=== PATIENT | female | born 1975 | race Caucasian/White ===

== ENCOUNTER 2017-07-30 05:38 | Day surgery (SDC) | payer BC ==
--- NOTE | 2017-07-29 15:03 | HP ---
The patient is scheduled for outpatient surgery on 07/30/2017. HISTORY OF PRESENT ILLNESS: Ms. Celaya is a 41-year-old white female, G3, P3 with history of laparo scopic tubal ligation who presented with complaint of menorrhagia. She has been having normal cycles until recently where she was bleeding off and on for 3 weeks. She was evaluated in my office on 01/2018 and ultrasound was performed. Pelvic ultrasound at that time showed a uterus measuring 8.2 x 5.8 x 6.5 cm with endometrial thickness of 17.6 mm with debris noted within the lining and no blood flow. Right ovary appeared normal. The left ovary measuring 4.34 x 2.5 x 3.5 cm with a hemorrhagic cyst or endometrioma of 1.6 x 1.7 cm seen. Patient was treated for presumed abnormal uterine bleeding, suspect ovarian ovulatory issue and was g iven Provera 10 mg b.i.d. for 10 days. She called back today on 07/29/2017 stating that her menstrua l cycles has increased in its flow despite the Provera and is bleeding now every 1-2 hours, super mckeon ok full. PAST SURGICAL HISTORY: Laparoscopic tubal ligation. BTL in 2016. Three spontaneous vaginal deliver ies. SOCIAL HISTORY: Nonsmoker and denies alcohol use. She is . ALLERGIES: She has no known drug allergies. FAMILY HISTORY: Essential hypertension and diabetes. PHYSICAL EXAMINATION: VITAL SIGNS: Her blood pressure is 116/70, pulse is 80 and regular, height 69 inches, weight 150 holly nds with a BMI of 22.2. HEENT: Within normal limits. CHEST: Clear to auscultation. HEART: Regular rate and rhythm. S1, S2 heart sounds. No murmurs, rubs or gallops. ABDOMEN: Soft, nontender, nondistended with no palpable masses. PELVIC: Vulva and vagina had no lesions. Some vaginal menstrual blood was noted. There was no cerv ical lesions. Uterus is small, nontender. Adnexa were nontender with no masses. ASSESSMENT: A 41-year-old white female with abnormal uterine bleeding with failed Provera medical ma nagement trial, thickened endometrial lining 17.8 mm to rule out possible polyp. PLAN: Proceed with diagnostic hysteroscopy with D&C in order to treat the bleeding and also for furt her diagnostic workup. This is scheduled for 07/30/2017.
[2017-07-29 16:50] VITALS: BMI 21.5
[2017-07-30] MEDS ORDERED: CEFAZOLIN/Water 2 GM/20 ML SYRINGE ONE (06:09)
[2017-07-30 06:25] LABS: Hemoglobin 12.1 g/dL (12.0-16.0); Mean Corpuscular Hemoglobin 33.1 pg (27.0-31.0); Mean Platelet Volume 8.1 fL (7.4-10.4); Platelet Count 229 thou/uL (130-400); RBC Distribution Width 11.4 % (11.5-14.5); Red Blood Cell (RBC) Count 3.67 mill/uL (4.20-5.40); White Blood Cell (WBC) Count 4.5 thou/uL (4.8-10.8)
[2017-07-30] MEDS ORDERED: Fentanyl 100 MCG/2 ML VIAL ONE ×2 (06:29→07:01)
[2017-07-30] MEDS ORDERED: Lidocaine 1% w/Epinephrine 1:200K 30 ML VIAL ONE (06:41)
[2017-07-30 06:47] LABS: BHCG - Serum Negative (NEGATIVE); Pregs Control Background? CLEAR/WHITE (CLR/WHITE); Pregs Control Bar Appear? YES (CONTROL BAR)
[2017-07-30] MEDS ORDERED: Midazolam HCl 2 mg/2 ml Vial ONE (07:01)
--- NOTE | 2017-07-30 08:38 | OP ---
DATE OF PROCEDURE: 07/30/2017 PREOPERATIVE DIAGNOSES: A 41-year-old white female, G3, P3, with prior tubal ligation with menorrhag ia unresponsive to medical management trial. POSTOPERATIVE DIAGNOSES: 1. A 41-year-old white female, G3, P3, with prior tubal ligation with menorrhagia unresponsive to me dical management trial. 2. Anovulatory bleeding. PROCEDURE PERFORMED: Diagnostic hysteroscopy with D&C. SURGEON: Martha Presley M.D. ANESTHESIA: General with LMA. COMPLICATIONS: None. COUNTS: Correct x2. PATHOLOGY: Endometrial curettings. FINDINGS: 1. Hysteroscopic evaluation of endometrial cavity and endocervical cavity showed no polyps, myomas o r lesions. Endometrial lining appeared thin. 2. Fluid deficit was 50 mL of normal saline from distension media. DISPOSITION: To the recovery room with plan for discharge home from day stay. DESCRIPTION OF OPERATIVE PROCEDURE: The patient previously received informed consent in regards to s urgery. She was taken back to the operating room where she received a general anesthetic agent witho ut complications, placed in dorsal lithotomy position with the use of Sy stirrups and prepped and draped in usual sterile fashion. In and out catheterization of bladder was performed. At this time, a side-arm speculum was placed in the vagina. Anterior lip of cervix grasped with a single tooth te naculum. Uterus sounded to 8 cm. The cervix was dilated to a size 16 Hanks dilator and the 5 mm tala gnostic scope was then inserted through the cervical os and to the endometrial cavity and the uterus was distended with saline distention media via the Truclear hysteroscopic system. Previously mention ed findings were photo documented and hysteroscope was removed. Sharp curettage of the cavity was th en performed and these curettings were sent for final pathologic analysis. The tenaculum was then re moved and a sponge stick was applied to the cervix for hemostasis. This was removed and hemostasis c onfirmed. The patient was awakened from anesthesia and transferred to the recovery room in stable co ndition.
[2017-07-30] MEDS ORDERED: Ibuprofen 600 MG TAB PO ONE (08:45)
[2017-07-30] MEDS ORDERED: Ondansetron HCl/PF 4 MG/2 ML Vial ONE (15:50)
[2017-07-30] MEDS ORDERED: Ketorolac Tromethamine 30 MG/ML VIAL ONE (15:50)
[2017-07-30] MEDS ORDERED: PROPOFOL 200 MG/20 ML VIAL ONE (15:50)
[2017-07-30] MEDS ORDERED: Lidocaine 1% PF 5 ML VIAL ONE (15:50)
[2017-07-30] MEDS ORDERED: Dexamethasone 20 MG/5 ML VIAL ONE (15:50)
== END 2017-07-30 09:41 | disposition home or self-care (01) ==
LOC: SDC 05:38
PROVIDERS: ATTEND Obstetrics & Gynecology
PROC: 0UJD8ZZ Inspection of Uterus and Cervix, Via Natural or Artificial Opening Endoscopic (ICD-10-PCS; principal; 2017-07-30)
PROC: 0UDB7ZX Extraction of Endometrium, Via Natural or Artificial Opening, Diagnostic (ICD-10-PCS; principal; 2017-07-30)
DX: N92.0 Excessive and frequent menstruation with regular cycle (principal); I10 Essential (primary) hypertension; E11.9 Type 2 diabetes mellitus without complications; Z79.3 Long term (current) use of hormonal contraceptives; Z98.51 Tubal ligation status; Z98.82 Breast implant status; Z90.89 Acquired absence of other organs
CPT/HCPCS: 84703; 85027; 86850; 86900; 86901; 88305; J0131; J1100; J1885; J2001; J2250; J2405; J2704; J3010

== ENCOUNTER 2017-10-01 10:01 | Outpatient (CLI) | payer BC | END 2017-10-01 10:02 | disposition home or self-care (01) | LOC: BICRAD 10:01 | PROVIDERS: ATTEND Nurse Practitioner Family | DX: M54.2 Cervicalgia (principal) | CPT/HCPCS: 72052 ==

== ENCOUNTER 2017-12-15 16:35 | Outpatient (CLI) | payer BC ==
[2017-12-15 17:15] LABS: Hemoglobin 12.4 g/dL (12.0-16.0); Mean Corpuscular HGB CONC 34.1 g/dL (32.0-36.0); Mean Corpuscular Hemoglobin 31.6 pg (27.0-31.0); Mean Corpuscular Volume 92.7 fL (78.0-98.0); Mean Platelet Volume 7.9 fL (7.4-10.4); Platelet Count 307 thou/uL (130-400); Red Blood Cell (RBC) Count 3.94 mill/uL (4.20-5.40); White Blood Cell (WBC) Count 7.2 thou/uL (4.8-10.8)
[2017-12-15 17:46] LABS: BHCG - Serum Negative (NEGATIVE); Pregs Control Background? CLEAR/WHITE (CLR/WHITE); Pregs Control Bar Appear? YES (CONTROL BAR)
== END 2017-12-15 16:36 | disposition home or self-care (01) ==
LOC: LABBT 16:35
PROVIDERS: ATTEND Obstetrics & Gynecology
DX: Z01.812 Encounter for preprocedural laboratory examination (principal); N94.6 Dysmenorrhea, unspecified; N92.0 Excessive and frequent menstruation with regular cycle; Q06.1 Hypoplasia and dysplasia of spinal cord
CPT/HCPCS: 84703; 85027; 86850; 86900; 86901

== ENCOUNTER 2017-12-16 07:54 | Observation (INO) | payer BC ==
--- NOTE | 2017-12-14 16:31 | HP ---
She is scheduled for a hysterectomy on 12/16/2017. HISTORY OF PRESENT ILLNESS: Ms. Celaya is a 42-year-old white female, with history of laparos copic tubal ligation who has been having continued menorrhagia issues. She saturates heavy pad with significant dysmenorrhea. Her menstrual cycles has continued to have heavy bleeding despite use of n onsteroidals. She did have a diagnostic hysteroscopy, D&C in 07/2017 that showed benign findings wit h no evidence of myomas or polyps. 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 The periods are described as ve ry painful and heavy and now with onset of cervical dysplasia. She is desiring definitive surgical t herapy. PAST MEDICAL HISTORY: Negative. PAST SURGICAL HISTORY: Noted laparoscopic tubal along with hysteroscopy, D&C. CURRENT MEDICATIONS: Lysteda, heavy menstrual bleeding. 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 SOCIAL HISTORY: No tobacco use. No significant alcohol use. ALLERGIES: She has no known drug allergies. FAMILY HISTORY: Essential hypertension, diabetes, no colon cancer or ovarian cancer or breast cancer . PHYSICAL EXAMINATION: VITAL SIGNS: Her blood pressure is 120/70, pulse 79 and regular, respirations 18, height 69 inches, weight 151 pounds, BMI of 22.3. HEENT: Within normal limits. CHEST: Clear to auscultation. HEART: Regular rate and rhythm. S1, S2 heart sounds, no murmurs, rubs or gallops. ABDOMEN: Soft, nontender, nondistended with no palpable masses. PELVIC: Vulva, vagina had no lesions. Cervix noted to have grade BRIDGET and biopsy recently. Uterus w as small and nontender, immobile. No adnexal tenderness or masses were noted. ASSESSMENT: This is a 42-year-old white female G3, P3 laparoscopic tubal ligation with continued sev ere dysmenorrhea and menorrhagia, failing medical management of Lysteda and nonsteroidals. 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 Due to multifacto r, she is now desiring definitive surgical therapy. We would plan for robotic total laparoscopic hys terectomy, remainder of tubal segments. Risks and benefits of procedure discussed in detail. She is set for surgery on 12/16/2017.
[2017-12-15 17:04] VITALS: BMI 22.6
[2017-12-16] MEDS ORDERED: Gabapentin 300 MG CAP ONE (08:30)
[2017-12-16] MEDS ORDERED: CEFAZOLIN/Water 2 GM/20 ML SYRINGE ONE (08:30)
[2017-12-16] MEDS ORDERED: Bupivacaine HCl 0.5%/Epinephrine 1:200,000/PF 30 ml Vial ONE (08:34)
[2017-12-16] MEDS ORDERED: CeleCOXIB 100 MG CAP PO SCH (08:45)
[2017-12-16] MEDS ORDERED: Famotidine/PF 20 mg/2ml Vial ONE (09:06)
[2017-12-16] MEDS ORDERED: Midazolam HCl 2 mg/2 ml Vial ONE ×2 (09:19→09:22)
[2017-12-16] MEDS ORDERED: Lidocaine 2% Jelly 5 ML TUBE ONE (09:22)
[2017-12-16] MEDS ORDERED: Fentanyl 250 MCG/5 ML VIAL ONE (09:22)
[2017-12-16] MEDS ORDERED: HYDROmorphone 2 MG/ML VIAL SLOW IVP PRN (10:30)
[2017-12-16] MEDS ORDERED: Ondansetron HCl/PF 4 MG/2 ML Vial IVP PRN ×2 (10:30→11:21)
[2017-12-16] MEDS ORDERED: Promethazine HCl 25 MG/ML VIAL IM PRN ×2 (10:30→11:21)
[2017-12-16] MEDS ORDERED: Promethazine HCl 25 MG/ML VIAL SLOW IVP PRN (10:30)
[2017-12-16] MEDS ORDERED: Ondansetron HCl/PF 4 MG/2 ML Vial ONE (11:19)
[2017-12-16] MEDS ORDERED: Lidocaine 1% PF 5 ML VIAL ONE (11:19)
[2017-12-16] MEDS ORDERED: PHENYLEPHRINE-NS 100 MCG/ML 10 ML SYRINGE ONE (11:19)
[2017-12-16] MEDS ORDERED: PROPOFOL 200 MG/20 ML VIAL ONE (11:19)
[2017-12-16] MEDS ORDERED: Dexamethasone 20 MG/5 ML VIAL ONE (11:19)
[2017-12-16] MEDS ORDERED: Glycopyrrolate 0.2 MG/ML 5 ML SYRINGE ONE (11:19)
[2017-12-16] MEDS ORDERED: Zolpidem Tartrate 5 MG TAB PO PRN (11:21)
[2017-12-16] MEDS ORDERED: Bisacodyl 10 MG SUPP PR PRN (11:21)
[2017-12-16] MEDS ORDERED: diphenhydrAMINE 25 MG CAP PO PRN (11:21)
[2017-12-16] MEDS ORDERED: traMADol HCl 50 MG TAB PO PRN (11:21)
[2017-12-16] MEDS ORDERED: Morphine 4 MG/ML Carpuject SLOW IVP PRN (11:21)
[2017-12-16] MEDS ORDERED: Simethicone Chewable 80 MG TAB PO PRN (11:21)
[2017-12-16] MEDS ORDERED: Fentanyl 100 MCG/2 ML VIAL ONE ×2 (11:50→12:15)
--- NOTE | 2017-12-16 12:16 | OP ---
DATE OF PROCEDURE: 12/16/2017 PREOPERATIVE DIAGNOSES: 1. A 42-year-old white female, G3, P3 with some menorrhagia, dysmenorrhea, unresponsive to medical m anagement. 2. Cervical dysplasia. 3. Desires definitive surgical therapy. POSTOPERATIVE DIAGNOSES: 1. A 42-year-old white female, G3, P3 with some menorrhagia, dysmenorrhea, unresponsive to medical m anagement. 2. Cervical dysplasia. 3. Desires definitive surgical therapy. PROCEDURE PERFORMED: Robotic total laparoscopic hysterectomy with bilateral salpingectomy. SURGEON: Martha Presley M.D. PUBLIC HEALTH DOCTOR: Юлия Lombardi M.D. ANESTHESIA: General endotracheal. ESTIMATED BLOOD LOSS: Less than 50 mL. COMPLICATIONS: None. COUNTS: Correct x2. ANTIBIOTICS: Two grams Ancef on-call to the operating room. PATHOLOGY: Uterus, cervix, and bilateral fallopian tubes. FINDINGS: 1. Normal-appearing bilateral ovaries and fallopian tubes status post previous Filshie clip applicat ors. 2. Generalized boggy uterus consistent with adenomyosis. 3. Clear urine present in Flynn catheter post-procedure. 4. Bilateral ureteral peristalsis visualized post procedure. DISPOSITION: To the recovery room stable. DESCRIPTION OF OPERATIVE PROCEDURE: The patient previously received informed consent in regard to [facility]. She was taken back to the operating room where she received general endotracheal anesthetic a gent without complications. She was placed in the dorsal lithotomy position with use of Sy stirru ps and prepped and draped in usual sterile fashion. A sidearm speculum was placed in the vagina. An terior lip of cervix was grasped with a single-tooth tenaculum. The uterus then sounded to 8 cm. A size 8 cm GIANA uterine manipulator with a 4.0 cm cervical cup was then placed in the usual fashion. Tenaculum and speculums was removed and a Flynn catheter had been placed. Attention was then turned to the abdomen where perspective trocar sites were infiltrated with 0.5% Marcaine with epinephrine. A 10 mm infraumbilical incision was made. Veress needle entered into peritoneal cavity and proper pl acement was confirmed with patient pressure less than 5 mmHg. Abdomen was insufflated to patient pre ssure of 15, approximately 4-1/2 liters carbon dioxide gas. A size 12 mm trocar was then placed thro ugh the infraumbilical incision and the robotic laparoscope was introduced through a trocar sleeve co nfirming proper entry. Additional bilateral lower quadrant 8 mm trocars were placed under laparoscop ic guidance with the right upper quadrant 11 mm trocar. The patient was placed in Trendelenburg posi tion and the robot was docked in usual fashion. Then, I proceeded to carry out the operation from th e operative console were my assistants remained at the bedside. Uterus was elevated and the previous ly mentioned findings were noted. The left fallopian tube was grasped at the fimbria by my mental health assistant and I proceeded to use the bipolar fenestrated device to coagulate the mesosalpinx and fallopian tub e with transection of this with the monopolar scissors with removal of the fallopian tube and it was removed up through the right upper quadrant trocar site. The left uterine ovarian ligament was then coagulated with bipolar fenestrated cautery, transected with serial coagulation and transection of th e broad ligament, hugging close to uterine specimen. The left round ligament was reached, it was coa gulated and transected. The anterior leaf of the broad ligament was then entered and the vesicouteri ne peritoneal dissection was carried under short and both blunt dissection, dissecting the bladder at raumatically past the cervical vaginal angle, which was delineated by the indentation of the cervical cup manipulator. The left uterine vessels were skeletonized and they were coagulated internal cervi hubert os region. This was repeated in similar fashion on the right side of the uterus again with the f allopian tube being removed and coagulated under the mesosalpinx and excised. The right uteroovarian ligament was then coagulated and transected with serial coagulation of broad ligament up to the roun d ligament being coagulated and transected again entering into the anterior leaf of the broad ligamen t and incised in a layering technique. The vesicouterine peritoneum dropping the bladder atraumatica lly past the cervical vaginal angle. Right uterine vessels again were skeletonized and coagulated in ternal cervical os region. At this point, the anterior colpotomy was then created ensuring the bladd er had been dissected atraumatically past the intended colpotomy site. The colpotomy began from the 12 to 3 o'clock and 12 to 9 o'clock position over the cervical cup coagulating the vessels at 9 and 3 o'clock position again and the posterior colpotomy completed this from 6 to 3 and 6 to 9 in likewise fashion. The uterus was then delivered in the vaginal vault. The monopolar scissor was switched fo r Chay needle food mobile driver. The vaginal cuff was coagulated any remaining oozing areas with bipolar fenest rated cautery. A Stratafix suture was then brought into the field by my mental health assistant and the vaginal cu ff was closed in full thickness beginning at the left angle towards right angle back towards the midl ine. Hemostasis was assured. The pelvis again was irrigated and suctioned. All pedicle sites were noted to be hemostatic. Bilateral ureteral peristalsis was then visualized and bilateral pelvic side silverio and courses of the ureters were below the operative field site. The urine in the Flynn bag was clear and draining adequately. The robot was then undocked. Trocar sleeves were removed after the gas had escaped and then a deep stitch of 0 Vicryl in [id number] stitch fashion was placed and t hen fascial defect at the umbilicus. The remainder trocar sites were closed with 4-0 Monocryl suture and Dermabond. The sponge stick was placed in the vagina post-procedure and the vaginal vault was d ry with no active bleeding. The patient was awakened from anesthesia, transferred to the recovery ro om in stable condition
[2017-12-16] MEDS: Ketorolac Tromethamine 30 MG/ML VIAL IVP SCH ×3 (13:14→19:50)
[2017-12-16] MEDS: Lactated Ringer's 1,000 ML IV SCH ×2 (13:18→18:27)
[2017-12-16] MEDS: Acetaminophen 1,000 MG in Premix Bag 1 BAG IVPB SCH ×3 (13:39→19:51)
[2017-12-16] MEDS: Morphine 10 MG/ML VIAL SLOW IVP PRN ×2 (15:06→20:30)
[2017-12-16] MEDS: traMADol HCl 50 MG TAB PO PRN ×2 (16:27→21:59)
[2017-12-17] MEDS: Ketorolac Tromethamine 30 MG/ML VIAL IVP SCH ×2 (02:03→07:45)
[2017-12-17] MEDS: Acetaminophen 1,000 MG in Premix Bag 1 BAG IVPB SCH ×2 (02:04→07:46)
[2017-12-17] MEDS: traMADol HCl 50 MG TAB PO PRN ×2 (04:01→09:38)
[2017-12-17] MEDS: Lactated Ringer's 1,000 ML IV SCH ×2 (04:08→10:12)
[2017-12-17 06:09] LABS: Hemoglobin 11.5 g/dL (12.0-16.0); Mean Corpuscular HGB CONC 33.3 g/dL (32.0-36.0); Mean Corpuscular Hemoglobin 31.2 pg (27.0-31.0); Mean Corpuscular Volume 93.7 fL (78.0-98.0); Mean Platelet Volume 8.5 fL (7.4-10.4); Platelet Count 280 thou/uL (130-400); RBC Distribution Width 12.1 % (11.5-14.5); Red Blood Cell (RBC) Count 3.68 mill/uL (4.20-5.40)
[2017-12-17 08:32] VITALS: BP 119/77; TEMP 98.5
--- NOTE | 2017-12-17 09:27 | PDOC.EVN ---
Event Note - Event Note Event Note: Tolerating diet, voiding, ambulating. Ready to go home. O: Tm 98.5 P89 r20 119/77 HCT 34.5% ABD: soft /non distended. active bowel sounds. trochar sites C/D/I perineum is dry A/P post op day 1 from robotic tlh. Doing well. D/c home. Has f/u 2 and 6 weeks. rx for tramadol.
--- NOTE | 2017-12-17 09:42 | DIS ---
DATE OF ADMISSION: 12/16/2017 DATE OF DISCHARGE: 12/17/2017 DIAGNOSES: 1. Severe dysmenorrhea and menorrhagia, unresponsive to medical management. 2. Suspected adenomyosis. 3. Cervical dysplasia desiring definitive surgical therapy. PROCEDURE PERFORMED: Robotic total laparoscopic hysterectomy and bilateral salpingectomy. SUMMARY OF HOSPITAL COURSE: Ms. Celaya is a 42-year-old white female with previous laparoscopic Jose shie clip tubal who has been having persistent menorrhagia and dysmenorrhea. She has tried nonsteroi dals and Lysteda with minimal relief. She also has developed cervical dysplasia and desired definiti ve surgical therapy for all the diagnoses. She underwent uncomplicated robotic total laparoscopic hy sterectomy with risk reduction salpingectomy on 12/16/2017. Postoperatively, the patient has done we ll. Vital signs have remained stable. Hematocrit postop day #1 was appropriate at 34.5%. She has e xcellent urine output and has been ambulating and voiding without difficulty and tolerating regular d iet. Pathology is pending at time of this dictation. She will be discharged this morning on postop day #1 and has a follow up in 2 and 6 weeks. She has a prescription for tramadol 50 q.4-6 hours p.r. n. pain and also instructed to use [id number] ibuprofen 800 mg q.8 hours p.r.n. pain.
== END 2017-12-17 11:25 | disposition home or self-care (01) ==
LOC: SDC 07:54 → 3SE 13:01 → EDSTATUS 16:30
PROVIDERS: ADMIT Obstetrics & Gynecology; ATTEND Obstetrics & Gynecology
PROC: 0UT94ZZ Resection of Uterus, Percutaneous Endoscopic Approach (ICD-10-PCS; principal; 2017-12-16)
PROC: 0UT74ZZ Resection of Bilateral Fallopian Tubes, Percutaneous Endoscopic Approach (ICD-10-PCS; 2017-12-16)
DX: D06.7 Carcinoma in situ of other parts of cervix (principal); D25.9 Leiomyoma of uterus, unspecified; N83.8 Other noninflammatory disorders of ovary, fallopian tube and broad ligament; Z79.899 Other long term (current) drug therapy
CPT/HCPCS: 36415; 85027; 88307; 96361; 96374; 96375; 96376; A4216; G0378; J0131; J0670; J1100; J1885; J2001; J2250; J2270; J2405; J2704; J3010; S0028

== ENCOUNTER 2017-12-25 17:21 | Inpatient (IN) | payer BC ==
[~2017-12-25 17:21] MED LIST: ISOVUE-370 76%-LOCM 1 ML ONE
[2017-12-25 18:28] LABS: #Eosinphils 0.3 thou/uL (0.0-0.7); #Lymphocytes 1.7 thou/uL (1.20-3.40); #Monocytes 0.7 thou/uL (0.11-0.59); #Neutrophils 8.7 thou/uL (1.40-6.50); %Basophils 0.4 % (0.0-1.0); %Eosinophils 2.8 % (0.0-10.0); %Lymphocytes 14.5 % (21.0-51.0); %Monocytes 6.1 % (0.0-10.0); %Neutrophils 76.1 % (42.0-75.0); Hemoglobin 12.3 g/dL (12.0-16.0); Mean Corpuscular HGB CONC 33.1 g/dL (32.0-36.0); Mean Corpuscular Hemoglobin 30.7 pg (27.0-31.0); Mean Corpuscular Volume 92.6 fL (78.0-98.0); Mean Platelet Volume 7.9 fL (7.4-10.4); Platelet Count 275 thou/uL (130-400); Red Blood Cell (RBC) Count 4.03 mill/uL (4.20-5.40); White Blood Cell (WBC) Count 11.4 thou/uL (4.8-10.8)
[2017-12-25 18:51] LABS: ALT (SGPT) 8 U/L (8-55); AST (SGOT) 13 U/L (5-34); Albumin 4.7 g/dL (3.5-5.0); Alkaline Phosphatase 66 U/L (40-150); Anion Gap 15 mmol/L (10-20); BUN (Urea Nitrogen) 7 mg/dL (7.0-18.7); Bilirubin, Total 0.5 mg/dL (0.2-1.2); Calc. Creatinine Clearance 0 mL/min (70-130); Calcium 9.9 mg/dL (7.8-10.44); Carbon Dioxide 26 mmol/L (22-29); Chloride 102 mmol/L (98-107); Estimated GFR-MDRD 88; Globulin 3.5 g/dL (2.4-3.5); Glucose 95 mg/dL (70-105); Potassium 3.5 mmol/L (3.5-5.1); Protein, Total 8.2 g/dL (6.0-8.3); Sodium 139 mmol/L (136-145)
[2017-12-25 21:30] LABS: CKMB 0.2 ng/mL (0-6.6); Troponin I Less than 0.010 ng/mL (< 0.028)
[2017-12-25 22:02] LABS: Bilirubin Negative (Negative); Blood, Urine Moderate (Negative); Clarity CLEAR (Clear); Glucose, Urine (Dipstick) Negative (Negative); Leukocyte Small (Negative); Nitrite Negative (Negative); Protein, Urine (Dipstick) Trace mg/dL (Neg-Trace); Specific Gravity, Urine 1.022 (1.002-1.036); Urobilinogen 0.2 mg/dL (0.2-1.0)
[2017-12-25 22:04] LABS: Bacteria/HPF None Seen HPF (None Seen); Hyaline Casts/LPF 4-6 HYALINE CAST LPF (0-3 Hyaline); Pathc Cast-AUWi Flag 0.87 (0-2.49)
[2017-12-25] MEDS ORDERED: Ketorolac Tromethamine 30 MG/ML VIAL ONE (22:10)
[2017-12-25] MEDS ORDERED: Morphine 10 MG/ML VIAL ONE (22:11)
[2017-12-25] MEDS ORDERED: Ondansetron HCl/PF 4 MG/2 ML Vial ONE (22:20)
--- NOTE | 2017-12-25 23:54 | CT ---
CT ANGIOGRAM OF THE CHEST: 12/25/17 COMPARISON: 09/03/13 HISTORY: Fever, diarrhea, lightheadness and dizziness. TECHNIQUE: Serial axial CT imaging is obtained at 2.5 mm intervals from the thoracic inlet through the upper abd omen with IV contrast using a CT angiogram protocol. Coronal and sagittal reformatted imaging obtaine d. FINDINGS: There is suboptimal opacification of the pulmonary arterial vasculature, limiting assessment for pulm onary embolism. Bilateral breast implants are present. No axillary lymphadenopathy is seen. There is no pleural, pericardial or mediastinal fluid. No hilar or mediastinal lymphadenopathy. Limited assess ment of the upper abdomen is unremarkable. There are definite filling defects identified within the distal aspect of the pulmonary arteries supp lying the right lower lobe extending into at least 3-4 segmental pulmonary arteries within the right lower lobe. There may be filling defects within distal segmental pulmonary arteries supplying the lef t lower lobe but suboptimal opacification of the pulmonary arterial vasculature limits assessment. There is no pneumothorax seen. The lung parenchyma demonstrates no focal areas of abnormal pulmonary parenchymal opacity. The osseous structures of the chest demonstrate no acute findings. IMPRESSION: Suboptimal assessment for pulmonary embolism secondary to suboptimal opacification of the pulmonary a rterial vasculature. There is definite pulmonary emboli on the right. The degree of pulmonary emboli may be underestimated on the basis of this exam. Results called to Dr. Fatima at 1:40 p.m. on 12/25/17. Code CR POS: DREW
--- NOTE | 2017-12-26 | CT ---
CT OF ABDOMEN AND PELVIS 12/25/17 COMPARISON: None. HISTORY: Prior surgery, pain. TECHNIQUE: Serial axial CT imaging at 5 mm intervals from lung bases through pubic symphysis with IV contrast. C oronal reformatted imaging obtained. FINDINGS: The lack or oral contrast media limits assessment of the bowel. There is no discrete focal liver lesi on identified. No free intraperitoneal air is noted. The spleen, gallbladder, pancreas, adrenal glands, and kidneys appear grossly unremarkable. There is nonspecific fat stranding and bilateral hemipelves and superior and posterior to the urinary bladder as well as superior to the cervix in the postoperative region given history of hysterectomy. There is also fluid in the pelvic cul-de-sac and presacral space, nonspecific. No discrete defined d rainable abscess is noted. Evaluation of the large and small bowel is limited without oral contrast media and demonstrates no ev idence for obstruction. The appendix appears grossly unremarkable. The vascular structures of the abdomen/pelvis appear patent. No lymphadenopathy is seen within the ab domen or pelvis. The osseous structures demonstrate no acute findings. IMPRESSION: Significant fat stranding is seen within the pelvic fat in the postoperative region status post hyste rectomy. There is free fluid in the pelvic cul-de-sac and presacral space. Significance is uncertain given recent surgery and thus clinical correlation is essential. If clinically warranted, followup im aging of the abdomen/pelvis is advised. POS: LUKAS
[2017-12-26] MEDS ORDERED: Ondansetron HCl/PF 4 MG/2 ML Vial ONE (01:17)
[2017-12-26] MEDS ORDERED: Enoxaparin Sodium 80 MG/0.8 ML SYRINGE ONE (01:18)
[2017-12-26] MEDS ORDERED: Ampicillin/Sulbactam 3 GM in Sodium Chloride 0.9% 100 ML IVPB SCH ×3 (01:30→13:00)
[2017-12-26] MEDS ORDERED: clonazePAM 1 MG TAB ONE (02:55)
[2017-12-26] MEDS ORDERED: clonazePAM 0.5 MG TAB PO SCH (03:00)
[2017-12-26] MEDS ORDERED: Clindamycin/D5W 600 MG in Premix Bag 1 BAG IVPB SCH (04:00)
[2017-12-26] MEDS ORDERED: HYDROcodone/Acetaminophen 5/325 mg Tablet ONE (06:36)
[2017-12-26 07:20] VITALS: BMI 22.1
[2017-12-26] MEDS ORDERED: HYDROcodone/Acetaminophen 7.5/325 mg Tablet PO PRN ×2 (08:02)
[2017-12-26] MEDS ORDERED: clonazePAM 1 MG TAB PO PRN (08:03)
--- NOTE | 2017-12-26 08:23 | HP ---
DATE OF ADMISSION: 12/26/2017 HISTORY OF PRESENT ILLNESS: Ms. Celaya is a 42-year-old white female G3, P3 approximately postop da y 10 from robotic total laparoscopic hysterectomy and bilateral salpingectomy on 12/16/2017. She had severe cervical dysplasia, uterine myoma and endometrial polyps with abnormal uterine bleeding and u nderwent definitive surgical therapy. During her operative course, patient had essentially uncomplicated hysterectomy and was ambulating ea rly on postop day 0 and also had SCD placements. She had no previous history of any DVTs in the past . 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 Manuela Moya. The patient did have some issues with constipation immediately postop and then started having some di arrhea and lower abdominal cramping and had been exposed to another close contact that had a viral ga stroenteritis. She was seen in my office on 12/23/2017. She had no fever at that time and her pelvi c exam was benign and cuff was intact with no obvious cellulitis changes. She was told to continue o bservation to home and if she had worsening of her symptoms to contact our office. She reports onset of low-grade fevers at home approximately the next day, highest being 100.5. She started having mor e of a sharp pelvic pain in the suprapubic area in bilateral lower quadrants. No vomiting, no abnorm al vaginal discharge. The most concerning thing she reports was feeling short of breath while shower ing yesterday and weakness. She just in general was feeling worse and came to the emergency room yes terday evening for evaluation. While in the ER, she was evaluated by the ER physician and had a CAT scan which was essentially unrem arkable except for some fat stranding and inflammatory changes in the pelvis. There was no abscess c ollection. There was some nonspecific pelvic cul-de-sac fluid noted. Her white count was mildly jesusita vated at 11.4, hematocrit 37.3. Her base met showed a normal creatinine 0.73, sodium 139 and potassi um 3.5. Her D-dimer was elevated at 2.65. She had a T-max of 100.5 in the ER. Due to the lighthead edness and shortness of breath, she did undergo a CT angio which showed a segmental pulmonary embolis m of right lower lobe. There was unsure if any effect in left lower lobes were noted due to the poor contrast uptake in this region. She has been admitted now for pulmonary embolism postoperatively an d also with presumed vaginal cuff cellulitis. PAST MEDICAL HISTORY: As per above. PAST SURGICAL HISTORY: She has had a laparoscopic tubal performed by myself with hysteroscopy, D&C i n 2018 for abnormal uterine bleeding and recent robotic TLH for the above diagnoses on 12/16/2017. CURRENT MEDICATIONS: She is on Unasyn and clindamycin for the pelvic cuff cellulitis and also is rec eiving full anticoagulating Lovenox and her pain medications. SOCIAL HISTORY: She is a nonsmoker. No significant alcohol use. ALLERGIES: She has no known drug allergies. FAMILY HISTORY: Essential hypertension, diabetes, no colon cancer, ovarian cancer, breast cancer and no familial thrombophilia reported. PHYSICAL EXAMINATION: GENERAL: She is resting in the bed comfortably. She is alert, oriented and conversational. She has no air hunger. VITAL SIGNS: Her current temperature is 98.4, pulse 98, respirations 18, O2 sat was 99% on room air and blood pressure is 138/87. NECK: Supple, no thyromegaly. CHEST: Clear to auscultation. HEART: Regular rate and rhythm. S1, S2 heart sounds, no murmurs, rubs or gallops. ABDOMEN: Soft, no rebound. Active bowel sounds noted. Trocar sites are healing well. She does hav e some mild tenderness suprapubically in bilateral lower quadrant. No tenderness in her upper abdome n, no CVA tenderness. PELVIC: Pelvic exam was deferred at this time, but no heavy vaginal bleeding was noted. EXTREMITIES: Nontender and duplex Doppler showed no lower extremity clots, DVTs. ASSESSMENT: This is a 42-year-old white female, recent postop day 10 from robotic TLH with now pulmo nary embolism in the right lower lobe, possibly in the left lower lobe per CT angio. She also has cl inical findings suggestive of pelvic cuff cellulitis. PLAN: 1. Cuff cellulitis has been initiated with Unasyn and clindamycin for antibiotic coverage. I usuall y would continue this IV antibiotic for 48 hours and she is afebrile and her pain improved and then c an switch this over to an oral antibiotic regimen. 2. Pulmonary embolism management as per consultation with hose coupling joiner, CCU and most likely be cont inued on her Lovenox and switched to an oral agent as per their recommendations. Pain management p.r .n.
--- NOTE | 2017-12-26 08:31 | ULT ---
PRELIMINARY REPORT/[facility]/EMERGENTY AFTER-HOURS PROCEDURE US Duplex Bilateral Lower Extremity Veins CLINICAL HISTORY: 42 years old, female; Condition or disease; Other: Pe TECHNIQUE: Real-time duplex ultrasound scan of the bilateral lower extremity veins integrating B-mode two dimens ional vascular structure, Doppler spectral analysis, color flow Doppler imaging and compression. COMPARISON: No relevant prior studies available. FINDINGS: Right deep veins: Unremarkable. No DVT in the right common femoral, femoral, proximal deep femoral or popliteal veins. The veins demonstrate normal color flow, are normally compressible, with phasic judah w and/or augmentation response. Right superficial veins: Unremarkable. No thrombus in the visualized right great saphenous vein. Left deep veins: Unremarkable. No DVT in the left common femoral, femoral, proximal deep femoral or p opliteal veins. The veins demonstrate normal color flow, are normally compressible, with normal phasi c flow and/or augmentation response. Left superficial veins: Unremarkable. No thrombus in the visualized left great saphenous vein. Soft tissues: No acute findings. No popliteal cyst. IMPRESSION: Normal bilateral lower extremity duplex venous ultrasound. Thank you for allowing us to participate in the care of your patient. Dictated and Authenticated by: Foster Agudelo MD 12/26/2017 2:57 AM Central Time ([place] & [place]) FINAL REPORT EMERGENCY AFTER HOURS BILATERAL LOWER EXTREMITY VENOUS DUPLEX ULTRASOUND INCLUDING COLOR AND SPECTRAL DOPPLER IMAGING: Date: 12/26/17 Time: 0157 hours Exam performed from groin to ankle, including visualized greater saphenous, common femoral, superfici al femoral, profunda femoral, popliteal, trifurcation, and posterior tibial vein regions. Phasic flow at all levels with normal compressibility and normal augmentation. No intraluminal thrombus. IMPRESSION: No evidence of deep venous thrombosis. Report in agreement with preliminary report given on-call by Nicolette. POS: [facility]
[2017-12-26] MEDS ORDERED: Enoxaparin Sodium 80 MG/0.8 ML SYRINGE SC SCH (09:00)
--- NOTE | 2017-12-26 11:26 | CON ---
DATE OF CONSULTATION: 12/26/2017 CONSULTING PHYSICIAN: Dr. Martha Presley REASON FOR CONSULTATION: Pulmonary embolism. HISTORY OF PRESENT ILLNESS: Ms. Celaya is a 42-year-old female who came into the hospital last nigh t with an acute pulmonary embolism. She had been feeling faint. She had symptoms occur rather abrup tly yesterday. She tells me she had a hysterectomy, a little over 1 week ago. She states that she h ad been ambulatory after surgery. She has no previous history of pulmonary embolism or deep venous t hrombosis. The surgery was performed because the patient has cervical cancer. PAST MEDICAL HISTORY: 1. She had cardiomyopathy back in 2013, but states that her echocardiogram eventually luli t back to normal. That is supported by an echo that is in the chart for [address] Lopez. 2. Cervical cancer. 3. Anxiety. PAST SURGICAL HISTORY: Breast augmentation and a hysterectomy done last week. She states her ovarie s were spared. ALLERGIES: None. MEDICATIONS PRIOR TO ADMISSION: Clonazepam 1 mg b.i.d. She is not taking any type of hormone replac ement therapy. SOCIAL HISTORY: Nonsmoker. Occasionally consumes wine. She works for [employer]. REVIEW OF SYSTEMS: Twelve point review of systems otherwise negative. PHYSICAL EXAMINATION: VITAL SIGNS: Temperature 98.4, pulse 98, respirations 18, O2 sat 99% on room air, blood pressure 130 /87. HEENT: Pupils react. Sclerae icteric. Oropharynx clear. NECK: No adenopathy or JVD, no bruits. LUNGS: Clear without wheezing or rhonchi. CARDIAC: S1, S2, slightly tachycardic without audible murmur. ABDOMEN: Soft, nontender, nondistended. EXTREMITIES: No clubbing, cyanosis, or edema. LABORATORY DATA: White blood cell count 11.4, hematocrit 37.3, platelet count 275. D-dimer 2.65. S odium 139, potassium 3.5, chloride 102, CO2 26, BUN 7, creatinine 0.7, glucose 95. I reviewed her CT scan personally. She has a pulmonary embolism distally in the right pulmonary odalis ry. Her Doppler of her lower extremities was negative. ASSESSMENT: 1. Pulmonary embolism - inciting risk appears to be recent surgery and a history of cancer. 2. Pelvic cuff cellulitis. 3. History of cardiomyopathy. PLAN: She can be safely converted over to Eliquis. Eliquis does need to be 10 mg twice daily for 7 days, and then 5 mg twice daily, thereafter. Duration of therapy should be 6 months. RECOMMENDATIONS: I would like to see her in the office 2-3 weeks after discharge and then again at t he 6 month period. She is safe to ambulate. She can be discharged to home as soon as Dr. Presley is comfortable with duration of treatment for the cellulitis.
[2017-12-26] MEDS ORDERED: Apixaban 5 MG TAB PO SCH (11:30)
[2017-12-26] MEDS: Clindamycin/D5W 600 MG in Premix Bag 1 BAG IVPB SCH ×2 (13:05→21:47)
[2017-12-26] MEDS: Ampicillin/Sulbactam 3 GM in Sodium Chloride 0.9% 100 ML IVPB SCH ×2 (18:15→23:44)
[2017-12-26] MEDS: Acetaminophen 500 MG TAB PO PRN (19:52)
[2017-12-26] MEDS: Apixaban 5 MG TAB PO SCH (21:46)
[2017-12-27 04:36] LABS: Band 7 % (5-11); Eosinophils 10 % (0-10); Hemoglobin 10.9 g/dL (12.0-16.0); Lymphocytes 16 % (21-51); MDiff Complete? YES; Mean Corpuscular HGB CONC 33.9 g/dL (32.0-36.0); Mean Corpuscular Hemoglobin 31.4 pg (27.0-31.0); Mean Corpuscular Volume 92.7 fL (78.0-98.0); Mean Platelet Volume 7.5 fL (7.4-10.4); Monocytes 5 % (0-10); Neutrophil 60 % (42-75); PLT Morphology Comment Appears Adequate; Platelet Count 254 thou/uL (130-400); RBC Distribution Width 11.8 % (11.5-14.5); Red Blood Cell (RBC) Count 3.46 mill/uL (4.20-5.40); White Blood Cell (WBC) Count 8.8 thou/uL (4.8-10.8)
[2017-12-27] MEDS: Clindamycin/D5W 600 MG in Premix Bag 1 BAG IVPB SCH ×3 (05:36→21:21)
[2017-12-27] MEDS: Ampicillin/Sulbactam 3 GM in Sodium Chloride 0.9% 100 ML IVPB SCH ×4 (06:39→23:59)
--- NOTE | 2017-12-27 07:55 | PDOC.EVN ---
Event Note - Event Note Event Note: Patient is tolerating diet. Slept after pain ubder control with morphine and the klonopin. Reports sharp pain in lower pelvis and vagina. Worsens at end of urinary stream. No nausea. Passing flatus. O: T max 100.6 Temp current 98.8. Pulse98. 110/74. R 16. O2 sat 100% on room air. abdomen: soft/non distended. No rebound tenderness. Tender suprapubic and bilateral lower quadrants. Bimanual:vaginal cuff intact. Tender and indurated . No masses. Ext: non tender. A/P: 1) Right lower lobe pulmonary embolism. Duplex doppler of lower extremities negative. Eliquis initiated as per pulmonary recs /Dr Dao. 2) Vaginal cuff cellulitis. T max 100.6. WBC normalized this AM at 8.8 with normal differential. Pelvic exam consistent with diagnosis..Continue Unasyn/ Clindamycin ..If not improving in regards to pain, will re image CT scan 12/28. Initial scan without evidence of abscess or hematoma..Will add B&O suppository trial for post voiding pain control. 3) Anxiety: clonazepam 1 mg bid scheduled.
[2017-12-27] MEDS ORDERED: Milk Of Magnesia 30 ML UDCUP PO PRN (07:56)
[2017-12-27] MEDS ORDERED: B & O 30 MG SUPP PR SCH (09:00)
[2017-12-27] MEDS: Acetaminophen 500 MG TAB PO PRN ×2 (09:39→21:24)
[2017-12-27] MEDS: Apixaban 5 MG TAB PO SCH ×2 (09:39→21:22)
[2017-12-27] MEDS: clonazePAM 1 MG TAB PO SCH ×2 (10:58→21:22)
[2017-12-27] MEDS: B & O PR SCH ×2 (11:02→21:22)
--- NOTE | 2017-12-27 13:46 | PRG ---
DATE OF SERVICE: 12/27/2017 SUBJETIVE: The patient is still experiencing a low-grade fever. OBJECTIVE: VIATL SIGNS: Temperature of 100.5. She is having some shortness of breath when she walks. Her puls e is 92, respirations 20, blood pressure 118/77, and O2 sat 97% on room air. HEENT: Unremarkable. NECK: No JVD. CHEST: Clear. CARDIAC: S1 and S2, regular. ABDOMEN: Soft. EXTREMITIES: No edema. LABORATORY DATA: White blood cell count 8.8, hematocrit 32, platelet count 254. ASSESSMENT: 1. Deep venous thrombosis. 2. History of previous cardiomyopathy. PLAN: The patient is currently receiving treatment for cuff cellulitis for laser hysterectomy. The Eliquis plan was outlined in the note yesterday. From my standpoint, she is stable for discharge any time.
[2017-12-28] MEDS: Clindamycin/D5W 600 MG in Premix Bag 1 BAG IVPB SCH ×2 (05:41→14:12)
[2017-12-28] MEDS: Ampicillin/Sulbactam 3 GM in Sodium Chloride 0.9% 100 ML IVPB SCH ×3 (05:41→18:49)
--- NOTE | 2017-12-28 09:39 | PDOC.EVN ---
Event Note - Event Note Event Note: States she still has pain in pelvis when morphine wears off. The B&O suppositories have helped post void pain. No bowel movement since diarrhea 4 days ago. C/o sharp pelvic pain across lower pelvis. No shortness of breath at rest. O: TMAX 100.7. T current 98.6. Pulse 96. R16. O2 sat 98%. 107/69. Abdomen: soft. .no rebound. blq tenderness. scant vaginal bleeding. A/P: 1) Low grade fever persists on day 2-3 Unasyn/clindamycin. Plan to re image CT Abdomen and pelvis with contrast...Will also give daily milk of magnesia for bowel regimen. Oral contrast should help too. continue current antibiotic regimen for now. Pulmonary embolism--continue eliquis per pulmonary service.
[2017-12-28] MEDS: Apixaban 5 MG TAB PO SCH (09:47)
[2017-12-28] MEDS: clonazePAM 1 MG TAB PO SCH (09:48)
[2017-12-28] MEDS: Docusate Calcium (SURFAK) 240 MG CAP PO PRN (10:42)
[2017-12-28] MEDS: Milk Of Magnesia 30 ML UDCUP PO SCH (10:43)
--- NOTE | 2017-12-28 11:11 | PRG ---
DATE OF SERVICE: 12/28/2017 SUBJECTIVE: She seems to be doing well from a respiratory standpoint. We are still awaiting results from echocardiogram that was done yesterday. She underwent a CT scan of the abdomen earlier today, the results from that are pending. She is still having pelvic pain. OBJECTIVE: VITAL SIGNS: On exam, temperature is 98.6 with T-max 100.7, pulse 96, respirations 16, O2 sat 98% on room air, blood pressure 107/69. HEENT: Unremarkable. NECK: No JVD. LUNGS: Clear. CARDIAC: S1 and S2, regular. ABDOMEN: Soft. EXTREMITIES: No edema. ASSESSMENT: 1. Pulmonary embolus. 2. Cellulitis of the pelvic cuff. PLAN: From my standpoint, she can come off telemetry and be transferred to the women's floor. Need to check a CBC tomorrow given that she is on Eliquis and is experiencing some vaginal bleeding. I wi ll continue to follow while she is in the hospital.
--- NOTE | 2017-12-28 12:07 | CT ---
ABDOMEN AND PELVIC CT SCAN WITH IV CONTRAST; Date: 12/28/17 HISTORY: 42-year-old female with history of vaginal cuff cellulitis, 12 days postoperative hysterectomy, pelvi c pain. COMPARISON: 12/25/17. FINDINGS: Small bilateral pleural based parenchymal changes or pleural thickening, probably minute subsegmental atelectasis. Minimal dilatation of the gallbladder with borderline dilatation of the common bile tejas t and intrahepatic ducts, with common bile duct up to 0.7 cm in diameter. Correlate with laboratory f indings in regards to significance. There is some trace free fluid in the upper left colonic gutter j ust caudal to the spleen. There are several minimally dilated loops of small bowel with some mild to borderline wall thickening involving the jejunum, possibly some type of nonspecific enteritis or ileu s. Normal appearing appendix. There is again noted to be some perirectal fat stranding and some perir ectal fluid and some presacral fluid. This appears to be minimally diminished from the prior study. N o evidence for drainable abscess. Small, fatty nodular area in the right kidney, probably a small ang iomyolipoma. IMPRESSION: Persistent but minimally improving fluid and fat stranding and edematous changes within the presacral and perirectal region in the pelvis. Small focus of free intraperitoneal fluid in the upper left col onic gutter adjacent to the spleen tip. Minimally dilated common bile duct and intrahepatic ducts and gallbladder with the common bile duct up to 0.7 cm increasing in size slightly from 12/25/17. Severa l loops of minimally dilated small bowel involving jejunal small bowel in the left upper abdomen with some minimal bowel wall thickening, evidence for nonspecific enteritis or ileus. Minimal pleural bas ed parenchymal changes in the caudal aspects of the inferior lungs, probable minimal subsegmental ate lectasis. 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 Normal appearing visualiz ed appendix. No drainable abscess. POS: [facility]
[2017-12-28] MEDS ORDERED: ISOVUE-370 76%-LOCM 1 ML ONE (12:42)
[2017-12-28] MEDS ORDERED: Potassium Chloride 40 MEQ in Sodium Chloride 0.9% 250 ML 250 ML IVPB SCH (14:00)
[2017-12-28] MEDS: Acetaminophen 500 MG TAB PO PRN (15:32)
[2017-12-28] MEDS: B & O PR SCH (17:50)
[2017-12-28] MEDS ORDERED: Amoxicillin/Potassium Clav 875 MG TAB PO SCH (23:30)
[2017-12-28] MEDS ORDERED: Clindamycin 150 MG CAP PO SCH (23:30)
[2017-12-28] MEDS ORDERED: traMADol HCl 50 MG TAB PO PRN (23:55)
[2017-12-29] MEDS: Docusate Calcium (SURFAK) 240 MG CAP PO PRN ×2 (00:11→08:21)
[2017-12-29] MEDS: clonazePAM 1 MG TAB PO SCH ×2 (00:13→08:21)
[2017-12-29] MEDS: traMADol HCl 50 MG TAB PO PRN ×2 (00:16→06:02)
[2017-12-29] MEDS: Apixaban 5 MG TAB PO SCH ×2 (00:18→08:20)
[2017-12-29] MEDS: Clindamycin/D5W 600 MG in Premix Bag 1 BAG IVPB SCH (01:26)
[2017-12-29] MEDS ORDERED: Clindamycin 150 MG CAP PO SCH (06:00)
[2017-12-29 06:06] LABS: #Basophils 0.1 thou/uL (0.0-0.2); #Eosinphils 0.5 thou/uL (0.0-0.7); #Lymphocytes 1.8 thou/uL (1.20-3.40); #Monocytes 0.7 thou/uL (0.11-0.59); #Neutrophils 6.6 thou/uL (1.40-6.50); %Basophils 0.6 % (0.0-1.0); %Eosinophils 5.3 % (0.0-10.0); %Lymphocytes 18.3 % (21.0-51.0); %Monocytes 6.8 % (0.0-10.0); %Neutrophils 69.1 % (42.0-75.0); Hemoglobin 10.8 g/dL (12.0-16.0); Mean Corpuscular HGB CONC 33.3 g/dL (32.0-36.0); Mean Corpuscular Hemoglobin 31.1 pg (27.0-31.0); Mean Corpuscular Volume 93.4 fL (78.0-98.0); Mean Platelet Volume 7.2 fL (7.4-10.4); Platelet Count 315 thou/uL (130-400); RBC Distribution Width 11.8 % (11.5-14.5); Red Blood Cell (RBC) Count 3.47 mill/uL (4.20-5.40); White Blood Cell (WBC) Count 9.6 thou/uL (4.8-10.8)
[2017-12-29 06:14] LABS: Anion Gap 12 mmol/L (10-20); BUN (Urea Nitrogen) Less than 4 mg/dL (7.0-18.7); Calc. Creatinine Clearance 154 mL/min (70-130); Carbon Dioxide 25 mmol/L (22-29); Chloride 105 mmol/L (98-107); Estimated GFR-MDRD Greater than 90; Glucose 89 mg/dL (70-105); Potassium 3.8 mmol/L (3.5-5.1); Sodium 138 mmol/L (136-145)
--- NOTE | 2017-12-29 07:53 | PDOC.EVN ---
Event Note - Event Note Event Note: Feeling better this AM. Oral tramadol working ok. Lost IV access last PM. No shortness of breath. No BM yet. No nausea. No heavy vaginal bleeding. O: Tmax 99.5. Tc 98.0 P 79 R18 106/71. O2 sat 100 % on room air. WBC 9.6/HCT 32.4% stable/Plt 315K. K+ 3.8 corrected. Creatinine 0.59... Blood cultures negative x2. ABD soft, non distended. No rebound. No upper abdomen tenderness. Decreased tenderness in pelvis. Repeat CT scan showed some decreasing fat stranding in pelvis. No issue. Some enteritis changes in jejunum which may correspond to recent gastroenteritis prior to admission. Stool in sigmoid colon up to splenic flexure.C/w constipation. A/P:1) Vaginal cuff cellulitis. Afebrile past 24 hours. WBC normal. Oral antibiotics initiated. CT Scan nor new issues or abscess. Expect some of the pelvic pain she is experiencing is from constipation with use of the iv morphine. Continue milk of magnesia bid and surfak at discharge. 2) Pulmonary embolism--continue eliquis 10 mg bid x 4 more days . Then 5 mg bid. Follow up with Dr Dao in 2-3 weeks. 3) Oral antibiotics for discharge-augmentin 875 mg bid x 7 day and clindamycin 300 mg bid x 7d. Follow up with me in 7-10 days.
[2017-12-29 08:14] VITALS: TEMP 99.6
[2017-12-29 08:37] VITALS: BP 125/72
[2017-12-29] MEDS ORDERED: Amoxicillin/Potassium Clav 875 MG TAB PO SCH (09:00)
[2017-12-29] MEDS: Milk Of Magnesia 30 ML UDCUP PO SCH (09:10)
--- NOTE | 2017-12-30 05:40 | DIS ---
DATE OF ADMISSION: 12/26/2017 DATE OF DISCHARGE: 12/29/2017 DIAGNOSES: 1. Postoperative right lower lobe pulmonary embolism. 2. Vaginal cuff cellulitis. SUMMARY OF HOSPITAL COURSE: Ms. Celaya is a 42-year-old white female, who recently underwent a robo tic total laparoscopic hysterectomy on 12/16/2017. She had pathology of severe cervical dysplasia wi th an endometrial polyp and uterine leiomyoma with abnormal uterine bleeding. Her initial inpatient course, hysterectomy was uneventful. She began having some gastroenteritis symptoms, approximately p ostop day 6-7 and then later on developed acute onset of presyncopal episode with shortness of breath that necessitated her visit to the emergency room on the late evening of 12/25/2017. She was evalua ismael by the ER physician there, and CT of the chest, abdomen, and pelvis was performed. She had a low -grade fever on arrival. She did have evidence of a pulmonary embolism in the distal right pulmonary artery. She had duplex Dopplers of her lower extremities, which were negative. She also had CT abd omen and pelvis showing some fat-stranding in the lower pelvis suggestive of the vaginal cuff celluli tis. There was no hematoma or abscess seen. There was no evidence of any urologic issues or any abs cess or any GI issues. Due to the pulmonary embolism and vaginal cuff cellulitis infection, she was admitted to telemetry. She was initiated on Lovenox for the pulmonary embolism and then she received a consultation from [facility] with Dr. Damion Dao and she was then switched over to Eliquis for her pulmonary embolism. She was initiated on IV Unasyn and clindamycin for the vaginal cuff cellulitis therapy. She has sign ificant pain issues and was requiring IV morphine frequently and she still remained with a low-grade fever of 100.6 T-max. White count normalized along with stabilization of her hematocrit. Due to the persistent complaints in pelvic pain, the pelvis was re-imaged with CAT scan and CT abdomen and pelv is. There was no evidence of any hematoma or abscess collection developed. This fat stranding was i mproving. There were no other significant findings. Her pain did improve and she was then converted over to oral antibiotics with Augmentin 875 mg p.o. b.i.d. and clindamycin 300 mg p.o. b.i.d. Her p ain was then controlled with tramadol q.6 hours as needed. She also had an echo of her heart showing a normal ejection fraction and no significant abnormalities seen. The patient had prior history of peripartum cardiomyopathy and has been seen by Dr. Lopez in the past for this. She is discharged home on 12/29/2017. Her blood cultures were negative x2. She was afebrile over 24 hours. DISCHARGE MEDICATIONS: Will be Eliquis 10 mg b.i.d. for 4 more days and then we will change to 5 mg b.i.d. for pulmonary embolism treatment, Augmentin 875 mg p.o. b.i.d. for 7 days, clindamycin 300 mg p.o. b.i.d. for 7 days, and tramadol 50 mg q.4-6 hours p.r.n. pain. FOLLOWUP: She will have a followup in 2 to 3 weeks with me and [address] Dao from [facility] for the pulmonary embolism.
--- NOTE | 2017-12-30 10:44 | PQF ---
NABILA TERRY CYNTHIA A MD [id number] CLINICAL DOCUMENTATION CLARIFICATION FORM: POST DISCHARGE DATE: 12/30/2017 ATTN: Dr. Presley Please exercise your independent, professional judgment in responding to the clarification form. Clinical indicators are provided on the bottom of this form for your review Please check appropriate box(s): [ X] Vaginal cuff cellulitis is a postoperative complication related to recent surgery [ ] Vaginal cuff cellulitis is not a postoperative complication related to recent surgery [ x ] Other diagnosis (please specify) Pulmonary Embolism [ ] Unable to determine In addition, please specify: Present on Admission (POA): [ x ] Yes [ ] No [ ] Unable to determine CLINICAL INDICATORS - SIGNS / SYMPTOMS / LABS Pet H&P: Low grade fevers at home. Sharp pelvic pain in the suprapubic area in bilateral lower quadrants. Vaginal cuff cellulitis. RISK FACTORS Per H&P: Status post robotic total laparoscopic hysterectomy with bilateral salpingectomy on 12/16/2017. TREATMENT: Per H&P: IV Unasyn and IV Clindamycin. (This form is maintained as a part of the permanent medical record) 2014 [employer] All Rights Reserved [email or web address] [phone] [email or web address]
== END 2017-12-29 10:40 | disposition home or self-care (01) | DRG 300 ==
LOC: ERS 17:21 → ERHOLD 12-26 01:54 → IMCU/EMU 12-26 07:19 → 2NO 12-27 08:33 → 3SE 12-28 17:57
PROVIDERS: ADMIT Obstetrics & Gynecology; ATTEND Obstetrics & Gynecology
DX: T81.718A Complication of other artery following a procedure, not elsewhere classified, initial encounter (principal); T81.4XXA Infection following a procedure, initial encounter; I26.99 Other pulmonary embolism without acute cor pulmonale; C53.9 Malignant neoplasm of cervix uteri, unspecified; F41.9 Anxiety disorder, unspecified; N76.89 Other specified inflammation of vagina and vulva; Z79.899 Other long term (current) drug therapy; Y83.6 Removal of other organ (partial) (total) as the cause of abnormal reaction of the patient, or of later complication, without mention of misadventure at the time of the procedure
CPT/HCPCS: 36415; 71275; 74177; 80048; 80053; 81003; 81015; 82553; 83605; 84484; 85025; 85379; 87040; 93005; 93306; 93970; 94760; 96361; 96365; 96367; 96372; 96375; 96376; A4216; J0295; J1650; J1885; J2270; J2405; J3480; J3490; J7050

== ENCOUNTER 2018-06-02 10:21 | Outpatient (CLI) | payer BC | END 2018-06-02 10:22 | disposition home or self-care (01) | LOC: BICMAMMO 10:21 | PROVIDERS: ATTEND Specialist | DX: Z12.31 Encounter for screening mammogram for malignant neoplasm of breast (principal); Z98.82 Breast implant status; Z85.41 Personal history of malignant neoplasm of cervix uteri | CPT/HCPCS: 77063; 77067 ==

== ENCOUNTER 2018-07-02 09:01 | Outpatient (CLI) | payer BC ==
--- NOTE | 2018-07-02 11:19 | CT ---
CTA OF THE THORAX UTILIZING IV CONTRAST AND PE PROTOCOL AND 3D REFORMATTED IMAGING: INDICATION: History of hysterectomy with PE currently on blood thinners since December. The patient is still experie ncing shortness of breath and dizziness. The exam is compared to a prior from [facility] dated 12/25/2017. FINDINGS: The previously seen partially occlusive thrombi within the segmental branches of the right lower lobe are no longer demonstrated. No new pulmonary embolus is present. The visualized heart and great ve ssels appear within normal limits. The visualized lungs are clear. No pleural effusion or pneumotho rax is evident. No acute osseous abnormality is evident. IMPRESSION: 1. Interval resolution of the previously seen partially occlusive thrombi seen within the segmental branches of the right lower lobe. No new pulmonary embolus is demonstrated. 2. No definite acute cardiopulmonary abnormality is demonstrated. The visualized lungs are clear. There is no pleural effusion or pneumothorax. Visualized upper abdomen is unremarkable. POS: [facility]
[2018-07-02] MEDS ORDERED: ISOVUE-370 76%-LOCM 1 ML ONE (11:22)
== END 2018-07-02 09:02 | disposition home or self-care (01) ==
LOC: BICCT 09:01
PROVIDERS: ATTEND Internal Medicine Critical Care Medicine
DX: I26.99 Other pulmonary embolism without acute cor pulmonale (principal)
CPT/HCPCS: 71275

== ENCOUNTER 2020-10-13 08:06 | Outpatient (CLI) | payer BC | END 2020-10-13 08:07 | disposition home or self-care (01) | LOC: BICRAD 08:06 | PROVIDERS: ATTEND Specialist | DX: Z12.31 Encounter for screening mammogram for malignant neoplasm of breast (principal); M25.561 Pain in right knee; M25.461 Effusion, right knee; Z98.82 Breast implant status | CPT/HCPCS: 77063; 77067 ==

== ENCOUNTER 2020-12-13 14:55 | Outpatient (CLI) | payer BC | END 2020-12-13 14:56 | disposition home or self-care (01) | LOC: BICMRI 14:55 | PROVIDERS: ATTEND Specialist | DX: M51.16 Intervertebral disc disorders with radiculopathy, lumbar region (principal); M47.26 Other spondylosis with radiculopathy, lumbar region; N28.9 Disorder of kidney and ureter, unspecified | CPT/HCPCS: 72148 ==

== ENCOUNTER 2020-12-25 10:22 | Outpatient (CLI) | payer BC ==
[~2020-12-25 10:22] MED LIST changes: -ISOVUE-370 76%-LOCM 1 ML ONE; +Iopamidol-370 76% 500 ML 1 ML ONE
== END 2020-12-25 10:23 | disposition home or self-care (01) ==
LOC: BICCT 10:22
PROVIDERS: ATTEND Specialist
DX: N28.89 Other specified disorders of kidney and ureter (principal)
CPT/HCPCS: 74170; Q9967

== ENCOUNTER 2021-02-22 20:21 | Emergency (ER) | payer BC ==
[2021-02-22] MEDS ORDERED: Ibuprofen 800 MG TAB ONE (20:51)
[2021-02-22 22:31] LABS: #Eosinphils 0.1 thou/uL (0.0-0.7); #Lymphocytes 0.3 thou/uL (1.20-3.40); #Monocytes 0.3 thou/uL (0.11-0.59); #Neutrophils 4.1 thou/uL (1.40-6.50); %Basophils 0.6 % (0.0-1.0); %Eosinophils 1.4 % (0.0-10.0); %Lymphocytes 7.1 % (21.0-51.0); %Monocytes 5.7 % (0.0-10.0); %Neutrophils 85.3 % (42.0-75.0); Hemoglobin 12.4 g/dL (12.0-16.0); Mean Corpuscular HGB CONC 34.7 g/dL (32.0-36.0); Mean Corpuscular Hemoglobin 34.5 pg (27.0-31.0); Mean Corpuscular Volume 99.2 fL (78.0-98.0); Mean Platelet Volume 8.1 fL (7.4-10.4); Platelet Count 207 thou/uL (130-400); RBC Distribution Width 10.8 % (11.5-14.5); White Blood Cell (WBC) Count 4.8 thou/uL (4.8-10.8)
[2021-02-22 22:46] LABS: ALT (SGPT) 10 U/L (8-55); AST (SGOT) 14 U/L (5-34); Albumin 4.3 g/dL (3.5-5.0); Alkaline Phosphatase 51 U/L (40-110); Anion Gap 13 mmol/L (10-20); BUN (Urea Nitrogen) 10 mg/dL (7.0-18.7); Bilirubin, Total 0.6 mg/dL (0.2-1.2); Calc. Creatinine Clearance 0 mL/min (70-130); Calcium 9.2 mg/dL (7.8-10.44); Carbon Dioxide 24 mmol/L (22-29); Chloride 105 mmol/L (98-107); Globulin 2.7 g/dL (2.4-3.5); Glucose 103 mg/dL (70-105); Potassium 4.3 mmol/L (3.5-5.1); Sodium 138 mmol/L (136-145)
[2021-02-22 23:09] LABS: SARS-CoV-2 NAA Rapid Test Not Detected (NotDetected)
[2021-02-22] MEDS ORDERED: Morphine 2 MG/ML VIAL ONE (23:22)
== END 2021-02-23 | disposition home or self-care (01) ==
LOC: ERS 20:21
DX: B34.9 Viral infection, unspecified (principal); I50.9 Heart failure, unspecified; Z20.822 Contact with and (suspected) exposure to COVID-19
CPT/HCPCS: 0240U; 36415; 71045; 80053; 83605; 84484; 85025; 85379; 85652; 86140; 93005; 96374; J2270

== ENCOUNTER 2022-01-30 08:20 | Outpatient (CLI) | payer BC | END 2022-01-30 08:21 | disposition home or self-care (01) | LOC: BICRAD 08:20 | PROVIDERS: ATTEND Nurse Practitioner Family | DX: R05.9 Cough, unspecified (principal) | CPT/HCPCS: 71046 ==

== ENCOUNTER 2022-08-14 08:38 | Outpatient (CLI) | payer BC | END 2022-08-14 08:39 | disposition home or self-care (01) | LOC: BICULT 08:38 | PROVIDERS: ATTEND Internal Medicine Nephrology | DX: N28.1 Cyst of kidney, acquired (principal) | CPT/HCPCS: 76770 ==

== ENCOUNTER 2022-12-18 09:23 | Outpatient (CLI) | payer BC | END 2022-12-18 09:24 | disposition home or self-care (01) | LOC: BICMRI 09:23 | PROVIDERS: ATTEND Plastic Surgery | DX: T85.43XA Leakage of breast prosthesis and implant, initial encounter (principal); Z91.89 Other specified personal risk factors, not elsewhere classified | CPT/HCPCS: 77063; 77067; 82565; A9577; C8908 ==